=== PATIENT | male | born 1995 | race Caucasian/White ===

== ENCOUNTER 2016-09-05 23:08 | Emergency (ER) | payer OTHER ==
--- NOTE | 2016-09-05 23:52 | EDPHY ---
H & P Stated Complaint: possible head injury while playing soccer this evening Time Seen by Provider: 09/05/16 23:39 HPI/ROS: CHIEF COMPLAINT: Concussion HISTORY OF PRESENT ILLNESS: Patient is a 21-year-old healthy man who comes to the emergency department with his friend who brought him because he was confused. States he was playing soccer earlier today and thinks he got a concussion. This happened around 8:30 p.m.. He states that he does not remember the event but thinks that he was going for a throw in. He has a small abrasion to his right cheek and a large abrasion to his left elbow and left hip. He is planning on after. He has a headache. He states that he feels confused. He went to a study group afterwards and states that he had trouble concentrating. He is not sure of the exact events but does not think he loss consciousness. He is trying to text his friend who was there to ask. REVIEW OF SYSTEMS: Constitutional: denies: chills, fever, recent illness, recent injury EENTM: denies: blurred vision, double vision, nose congestion Respiratory: denies: cough, shortness of breath Cardiac: denies: chest pain, irregular heart rate, lightheadedness, palpitations Gastrointestinal/Abdominal: denies: abdominal pain, diarrhea, nausea, vomiting, blood streaked stools Genitourinary: denies: dysuria, frequency, hematuria, pain Musculoskeletal: denies: joint pain, muscle pain Skin: See HPI Neurological: See HPI denies: numbness, paresthesia, tingling, dizziness, weakness Hematologic/Lymphatic: denies: blood clots, easy bleeding, easy bruising Immunologic/allergic: denies: HIV/AIDS, transplant EXAM: GENERAL: Well-appearing, well-nourished and in no acute distress. HEAD: Atraumatic, normocephalic. EYES: Pupils equal round and reactive to light, extraocular movements intact, sclera anicteric, conjunctiva are normal. ENT: TMs normal, nares patent, oropharynx clear without exudates. Moist mucous membranes. NECK: Normal range of motion, supple without lymphadenopathy or JVD. LUNGS: Breath sounds clear to auscultation bilaterally and equal. No wheezes rales or rhonchi. HEART: Regular rate and rhythm without murmurs, rubs or gallops. ABDOMEN: Soft, nontender, normoactive bowel sounds. No guarding, no rebound. No masses appreciated. BACK: No CVA tenderness, no spinal tenderness, step-offs or deformities EXTREMITIES: Normal range of motion, no pitting or edema. No clubbing or cyanosis. NEUROLOGICAL: Cranial nerves II through XII grossly intact. Normal speech, normal gait. 5/5 strength, normal movement in all extremities, normal sensation PSYCH: Normal mood, normal affect. SKIN: Abrasions to right cheek, left hip and left elbow Source: Patient Exam Limitations: No limitations - Personal History Current Tetanus/Diphtheria Vaccine: Yes - Medical/Surgical History Hx Asthma: No Hx Chronic Respiratory Disease: No Hx Diabetes: No Hx Cardiac Disease: No Hx Renal Disease: No Hx Cirrhosis: No Hx Alcoholism: No Hx HIV/AIDS: No Hx Splenectomy or Spleen Trauma: No Other PMH: PSHx: denies. PMHx: denies - Family History Significant Family History: No pertinent family hx - Social History Smoking Status: Never smoked Alcohol Use: Sober Drug Use: None Constitutional: Initial Vital Signs Temperature (C) 37 C 09/05/16 23:10 Heart Rate 84 09/05/16 23:10 Respiratory Rate 14 09/05/16 23:10 Blood Pressure 130/68 H 09/05/16 23:10 O2 Sat (%) 99 09/05/16 23:10 O2 Delivery Mode Room Air Allergies/Adverse Reactions: No Known Allergies Allergy (Unverified 09/05/16 23:10) Home Medications: Medication Instructions Recorded NK [No Known Home Meds] 09/05/16 Medical Decision Making - Diagnostics Imaging Results: Imaging Impressions Head CT 09/05/16 23:46 Impression: 1. No significant intracranial abnormality seen. Findings discussed with Jay Walls M.D. at 0:03 hour, 09/06/2016. Imaging: Discussed imaging studies w/ call center dispatcher Radiologist ED Course/Re-evaluation: We discussed the CT results which are reassuring. Patient and friend happy with this and eager to go home. We discussed concussions and post concussion symptoms and gradual return to activity. Patient understands and agrees. We discussed indications for returning. Differential Diagnosis: Partial list of the Differential diagnosis considered include but were not limited to; concussion, intracranial injury, abrasion and although unlikely based on the history and physical exam, I also considered fracture, neck injury , traumatic brain injury. I discussed these differential diagnoses and the plan with the patient as well as the usual and expected course. The patient understands that the diagnosis is provisional and that in medicine we are not always correct and that further workup is often warranted. Usual and customary warnings were given. All of the patient's questions were answered. The patient was instructed to return to the emergency department should the symptoms at all worsen or return, otherwise to followup with the physician as we discussed. Departure - Departure Disposition: Home, Routine, Self-Care Clinical Impression: Abrasion Concussion Qualifiers: Encounter type: initial encounter Loss of consciousness presence/duration: with LOC of unspecified duration Qualified Code(s): S06.0X9A - Concussion with loss of consciousness of unspecified duration, initial encounter Condition: Fair Instructions: Concussion (ED), Post Concussion Syndrome (ED) Referrals: NONE *PRIMARY CARE P,. [Unknown] - As per Instructions Pippa Harris MD [Medical Doctor] - As per Instructions Stand Alone Forms: School Excuse
[2016-09-06 00:28] VITALS: BP 122/78; PULSE 85; RESP 18; TEMP 98.4; O2SAT 98
== END 2016-09-06 00:28 | disposition home or self-care (01) ==
DX: S06.0X9A Concussion with loss of consciousness of unspecified duration, initial encounter (principal); S70.212A Abrasion, left hip, initial encounter; S50.312A Abrasion of left elbow, initial encounter; X58.XXXA Exposure to other specified factors, initial encounter; Y99.8 Other external cause status; Y93.66 Activity, soccer